=== PATIENT | female | born 1955 | race Caucasian/White ===

== ENCOUNTER 2020-04-21 00:43 | Emergency (ER) | payer MEDICAID ==
[~2020-04-21] VITALS: Ht 170.2 cm; Wt 87.0 kg
--- NOTE | 2020-04-21 00:55 | NUR ---
Silas rn:Idris mra [phone] for primary contact to get corona stuart.
--- NOTE | 2020-04-21 01:26 | NUR ---
Pt presents to ed c/o feeling heart palpitations starting at 2300. States hx of afib and is on beta blockers for afib. States feeling "it in my throat and making me want to cough... i also get a little dizzy when i walk." Hooked up to all monitoring and 130-160 hr noted in room. Iv intiated and md at bedside for assessment. Blood drawn and awaiting further orders.
[2020-04-21] MEDS ORDERED: METO25TA35 PO (01:28)
[2020-04-21] MEDS ORDERED: ASPI-496 PO (01:28)
--- NOTE | 2020-04-21 01:28 | NUR ---
Pt states taking an extra dose of her metoprolol tonight as guided by her physician.
[2020-04-21] MEDS ORDERED: SODIUM CHLORIDE 0.9% 1,000ML IVBOLUS ONE (01:30)
[2020-04-21] MEDS ORDERED: DILTIAZEM 5 MG/ML, 5ML IVPush ONE ×2 (01:30)
[2020-04-21] MEDS ORDERED: DILTIAZEM 5 MG/ML, 5ML ONE (01:35)
[2020-04-21 02:00] LABS: BASOPHILS # (AUTO) 0.01 x10^3/uL (0-0.1); BASOPHILS % (AUTO) 0 % (0-1); EOSINOPHILS # (AUTO) 0.46 x10^3/uL (0-0.4); EOSINOPHILS % (AUTO) 6 % (1-7); LYMPHOCYTES # (AUTO) 1.27 x10^3/uL (1-3.4); LYMPHOCYTES % (AUTO) 16 % (22-44); MD NO; MEAN CORPUSCULAR HEMOGLOBIN 28.8 pg (27.0-34.8); MEAN CORPUSCULAR HGB CONC 33.7 g/dL (32.4-35.8); MEAN CORPUSCULAR VOLUME 85.6 fL (80-100); MEAN PLATELET VOLUME 8.1 fL (7.4-10.4); MONOCYTES # (AUTO) 0.59 x10^3/uL (0.2-0.8); MONOCYTES % (AUTO) 8 % (2-9); NEUTROPHILS # (AUTO) 5.42 x10^3/uL (1.8-6.8); NEUTROPHILS % (AUTO) 70 % (42-75); PLATELET COUNT 222 x10^3/uL (130-400); RED BLOOD COUNT 5.07 x10^6/uL (3.82-5.3); RED CELL DISTRIBUTION WIDTH 13.9 % (9.6-15.2)
[2020-04-21 02:15] LABS: ALBUMIN 3.3 g/dL (3.4-5.0); CALCIUM 8.1 mg/dL (8.5-10.1); CHLORIDE 114 mmol/L (98-107); CREATININE 0.63 mg/dL (0.55-1.02)
[2020-04-21 02:18] LABS: TROPONIN I < 0.015 ng/mL (0.000-0.045)
--- NOTE | 2020-04-21 02:47 | NUR ---
BREAK RN: DR. RUIZ IN TO DISCUSS POC WITH PT. AT THIS TIME.
[2020-04-21] MEDS ORDERED: METOPROLOL 1 MG/ML, 5ML IVPush ONE (03:00)
[2020-04-21] MEDS ORDERED: METOPROLOL 1 MG/ML, 5ML ONE (03:01)
--- NOTE | 2020-04-21 03:14 | NUR ---
IV METOPROLOL ADMIN PER NOV. HR BETWEEN 84-111 CURRENTLY IN A-FIB. WILL CONTINUE TO MONITOR. PT. DENIES NEEDS AT THIS TIME. HEART, SPO2, AND B/P MONIOTRS IN PLACE.
--- NOTE | 2020-04-21 03:24 | NUR ---
REPORT BACK TO JODIE MA TO RE-ASSUME CARE OF PT.
[2020-04-21 03:29] VITALS: BP 118/56
[2020-04-21 04:00] LABS: ANION GAP 9 mmol/L (5-15)
--- NOTE | 2020-04-21 04:06 | NUR ---
PT DISCHARGED PER PROVIDER REQUEST. PT WALKED TO DISCHARGE DESK WITH STEADY GAIT. PT STATED "SHE FELT BETTER MULTIPLE TIMES"
== END 2020-04-21 04:09 | disposition home or self-care (01) ==
LOC: ED 03:30
DX: I48.0 Paroxysmal atrial fibrillation (principal); R00.2 Palpitations; R00.0 Tachycardia, unspecified
CPT/HCPCS: 36415; 71045; 80048; 82040; 84484; 85025; 93005; 96361; 96374; 96375; 99285; J7030; 96376